=== PATIENT | male | born 1955 | race Two or more races ===

== ENCOUNTER 2017-09-28 16:49 | Emergency (ER) | payer OTHER ==
[~2017-09-28] VITALS: Ht 170.2 cm; Wt 72.6 kg
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
[2017-09-28 18:35] VITALS: BP 140/85
== END 2017-09-28 18:36 | disposition home or self-care (01) ==
LOC: EDSEX 16:52 → ER 16:52
DX: S39.012A Strain of muscle, fascia and tendon of lower back, initial encounter (principal); S16.1XXA Strain of muscle, fascia and tendon at neck level, initial encounter; M51.37 Other intervertebral disc degeneration, lumbosacral region; V49.49XA Driver injured in collision with other motor vehicles in traffic accident, initial encounter; Y93.89 Activity, other specified; Y92.413 State road as the place of occurrence of the external cause; Y99.8 Other external cause status
CPT/HCPCS: 72125; 72131; 99284; A4606; Z7610